=== PATIENT | female | born 1960 | race Caucasian/White ===

== ENCOUNTER 2017-11-21 11:54 | Day surgery (SDC) | payer OTHER ==
[2017-11-18 13:07] VITALS: BMI 22.1
[2017-11-21 12:21] VITALS: TEMP 98.2
[2017-11-21] MEDS ORDERED: MIDAZOLAM HCL 2 MG/2 ML SINGLE DOSE VIAL ONE ×5 (12:47→14:28)
--- NOTE | 2017-11-21 14:32 | OP ---
Operative Note - Note: Operative Date: 11/21/17 Pre-Operative Diagnosis: Left kidney stone Operation: Left ESWL Findings: 7 mm upper pole kidny stone Surgeon: Peyman Cee Operative Report Dictated: Yes
[2017-11-21 18:22] VITALS: BP 155/77; PULSE 55
--- NOTE | 2017-11-21 19:07 | OP ---
DATE OF OPERATION: 11/21/2017 PREOPERATIVE DIAGNOSIS: Left renal stone. POSTOPERATIVE DIAGNOSIS: Left renal stone. PROCEDURE: Left extracorporeal shock wave lithotripsy. ANESTHESIA: Fractional. ATTENDING: Baljit Whitt MD DESCRIPTION OF OPERATION: Patient was brought in the operating room, placed in supine position on the operating room table. Ultrasonography and fluoroscopy were performed. A 7-mm left upper-pole stone was identified. At this point, fractional anesthesia was given. Shock wave lithotripsy was then performed; 3000 impulses at 18 joules of power were administered to the stone with excellent fragmentation noted. No complications were noted. The patient tolerated the procedure very well. The disposition of the patient was to the recovery room. BALJIT WHITT M.D. [id number]
== END 2017-11-21 18:15 | disposition home or self-care (01) ==
LOC: JASU-SURG 11:54
PROVIDERS: ATTEND Urology
PROC: 0TF4XZZ Fragmentation in Left Kidney Pelvis, External Approach (ICD-10-PCS; principal; 2017-11-21 13:15)
DX: N20.0 Calculus of kidney (principal)